=== PATIENT | male | born 2000 | race Caucasian/White ===

== ENCOUNTER 2020-06-05 18:21 | Emergency (ER) | payer BC ==
[~2020-06-05] VITALS: Ht 177.8 cm; Wt 63.5 kg
[2020-06-05] MEDS ORDERED: OMEPRAZOLE20 MG PO (18:36)
== END 2020-06-05 19:10 | disposition home or self-care (01) ==
LOC: ED 18:21
DX: S99.912A Unspecified injury of left ankle, initial encounter (principal); V00.131A Fall from skateboard, initial encounter
CPT/HCPCS: 73610; 99283-25